=== PATIENT | female | born 1965 | race Caucasian/White ===

== ENCOUNTER 2016-06-18 11:07 | Emergency (ER) | payer MEDICAID, OTHER ==
[~2016-06-18 11:07] MED LIST: Sodium Chloride 0.9% 2,000 ML IV ONE
[2016-06-18] MEDS: Sodium Chloride 0.9%, Bacteriostatic 10 ML MDV IV ONE (11:27)
[2016-06-18] MEDS ORDERED: Promethazine 25 MG/ML SDV IM ONE ×2 (11:32→14:22)
[2016-06-18] MEDS ORDERED: Sodium Chloride 0.9% 10 ML Syringe FLUSH PRN (11:32)
[2016-06-18 11:56] LABS: CHLORIDE,CL 104 mmol/L (101-111); SODIUM,NA 137 mmol/L (135-145)
--- NOTE | 2016-06-18 12:47 | EDM.PDOC ---
ED HPI GI/ABDOMINAL - General Chief Complaint: Gastrointestinal Problem Stated Complaint: SICK, DIABETIC Time Seen by Provider: 06/18/16 11:25 Source of Information: Reports: Patient History Limitations: Reports: No limitations - History of Present Illness INITIAL COMMENTS - FREE TEXT/NARRATIVE: Pt states that she has been having n/v for the past 4 days. States that she also has a cough. oxygen sats 77% upon arrival. Placed on NRB. sats increased to 98% Symptom Onset Date: 06/15/16 Timing/Duration: Reports: Getting worse Associated Symptoms (-Female): Reports: nausea/vomiting - Related Data Allergies/ADRs: Allergies Allergy/AdvReac Type Severity Reaction Status Date / Time Cephalosporins Allergy Intermediate Rash Verified 06/18/16 12:40 Influenza Virus Vaccines Allergy Intermediate Nausea and Verified 06/18/16 12:40 Vomiting Iodinated Contrast Media - Allergy Intermediate Pain Verified 06/18/16 12:40 Oral and Penicillins Allergy Intermediate Pain Verified 06/18/16 12:40 Quinolones Allergy Intermediate Rash Verified 06/18/16 12:40 Home Meds: Home Meds Acetaminophen/oxyCODONE [Percocet 325-5 MG] 1 tab PO Q4HR PRN 06/18/16 [History] Albuterol [Proair HFA] 2 puff INH ASDIRECTED 06/18/16 [History] Atenolol [Atenolol] 25 mg PO DAILY 06/18/16 [History] Calcitriol [Rocaltrol] 2 cap PO DAILY 06/18/16 [History] Citalopram [Citalopram HBr] 40 mg PO DAILY 06/18/16 [History] DULoxetine [Cymbalta] 60 mg PO BID 06/18/16 [History] Estradiol [Estradiol] 1 mg PO DAILY 06/18/16 [History] Lisinopril 40 mg PO DAILY 06/18/16 [History] Pregabalin [Lyrica] 100 mg PO TID 06/18/16 [History] Promethazine HCl 50 mg PO TID 06/18/16 [History] Ranitidine [Zantac] 150 mg PO DAILY 06/18/16 [History] ED ROS GENERAL - Review of Systems Review Of Systems: ROS reveals no pertinent complaints other than HPI. Respiratory: Reports: cough, sputum GI/Abdominal: Reports: Abdominal pain, Nausea, Vomiting ED EXAM, GI/ABD - Physical Exam Exam: See Below Exam Limited By: No limitations General Appearance: alert, WD/WN, no apparent distress Eyes: bilateral: normal appearance, EOMI Ears: normal external exam, normal canal, hearing grossly normal, normal TMs Nose: normal inspection, normal mucosa, no blood Throat/Mouth: Normal inspection, Normal lips, Normal teeth, Normal gums, Normal oropharynx, Normal voice, No airway compromise Head: atraumatic, normocephalic Neck: normal inspection, supple, non-tender, full range of motion Respiratory/Chest: no respiratory distress, lungs clear, normal breath sounds, no accessory muscle use, chest non-tender Cardiovascular: normal peripheral pulses, regular rate, rhythm, no edema, no gallop, no JVD, no murmur, no rub GI/Abdominal: normal bowel sounds, soft, non tender, no organomegaly, no distention, no abnormal bruit, no mass, other (insulin pump present) Neurological: alert, oriented, CN II-XII intact, normal cognition, normal gait, normal reflexes, no motor/sensory deficits Skin Exam: Warm, Dry, Intact, Normal color, No rash Course - Vital Signs Last Recorded V/S: Last Vital Signs Temp 100.2 F 06/18/16 14:38 Pulse 100 06/18/16 14:21 Resp 20 06/18/16 11:35 BP 130/70 06/18/16 11:35 Pulse Ox 93 L 06/18/16 14:21 - Orders/Labs/Meds Orders: Active Orders 24 hr Category Date Time Status EKG Documentation Completion [RC] STAT Care 06/18/16 12:57 Active RT Aerosol Therapy [RC] ASDIRECTED Care 06/18/16 12:57 Active RT Aerosol Therapy [RC] ASDIRECTED Care 06/18/16 14:21 Active Chest 2V [CR] Urgent Exams 06/18/16 11:41 Taken CULTURE BLOOD [BC] Stat Lab 06/18/16 11:25 Received CULTURE BLOOD [BC] Stat Lab 06/18/16 12:45 Results CULTURE STREP A CONFIRMATION [RM] Stat Lab 06/18/16 11:39 Results STREP SCRN A RAPID W CULT CONF [RM] Stat Lab 06/18/16 11:39 Results UA W/MICROSCOPIC [URIN] Stat Lab 06/18/16 11:41 Uncollected Azithromycin [Zithromax] 1,000 mg Med 06/18/16 14:15 Active Sodium Chloride 0.9% [Normal Saline] 250 ml IV ONETIME Dextrose 5%-0.9% NaCl [Dextrose 5%-Normal Saline] 1,000 Med 06/18/16 13:42 Active ml IV ONETIME Sodium Chloride 0.9% [Saline Flush] Med 06/18/16 11:32 Active 10 ml FLUSH ASDIRECTED PRN Blood Culture x2 Reflex Set [OM.PC] Stat Ot 06/18/16 12:33 Ordered Saline Lock Insert [OM.PC] Stat Ot 06/18/16 11:31 Ordered Medication Orders Dextrose/Sodium Chloride (Dextrose 5%-Normal Saline) 1,000 mls @ 100 mls/hr IV ONETIME ONE Stop: 06/18/16 23:41 Last Admin: 06/18/16 13:42 Dose: 100 mls/hr Azithromycin 1,000 mg/ Sodium (Chloride) 250 mls @ 250 mls/hr IV ONETIME ONE Stop: 06/18/16 15:14 Last Admin: 06/18/16 14:33 Dose: 250 mls/hr Sodium Chloride (Saline Flush) 10 ml FLUSH ASDIRECTED PRN PRN Reason: Keep Vein Open Last Admin: 06/18/16 11:25 Dose: 10 ml Labs: Laboratory Tests 06/18/16 06/18/16 06/18/16 Range/Units 11:25 11:25 11:25 WBC 10.4 H (5.0-10.0) 10^3/uL RBC 3.37 L (4.2-5.4) 10^6/uL Hgb 8.6 L (12.0-16.0) g/dL Hct 28.3 L (37.0-47.0) % MCV 84.0 (80-100) fL MCH 25.5 L (27.0-34.0) pg MCHC 30.4 L (33.0-35.0) g/dL Plt Count 172 (150-450) 10^3/uL Neut % (Auto) 84.0 H (42.2-75.2) % Lymph % (Auto) 9.5 L (20.5-50.1) % [place] % (Auto) 5.4 (2-8) % Eos % (Auto) 1.0 (1.0-3.0) % Baso % (Auto) 0.1 (0.0-1.0) % PT 10.8 (9.0-12.0) SEC INR 1.0 (0.9-1.2) ABG pH (7.35-7.45) ABG pCO2 (35-45) mmHg ABG pO2 (70-100) mmHg ABG HCO3 (22-26) mmol/L ABG O2 Saturation (95-100) % ABG Base Excess ((-2)-(+3)) mmol/L [place] Test O2 Delivery Device Oxygen Flow Rate Sodium 137 (135-145) mmol/L Potassium 4.8 (3.6-5.0) mmol/L Chloride 104 (101-111) mmol/L Carbon Dioxide 23.0 (21.0-31.0) mmol/L Anion Gap 14.8 BUN 19 H (7-18) mg/dL Creatinine 1.4 H (0.6-1.3) mg/dL Est Cr Clr Drug Dosing TNP Estimated GFR (MDRD) 40 BUN/Creatinine Ratio 13.57 Glucose 115 H (74-105) mg/dL POC Glucose (70-105) mg/dl Lactic Acid (0.5-2.2) mmol/L Calcium 8.7 (8.4-10.2) mg/dl Total Bilirubin 0.5 (0.2-1.0) mg/dL AST 23 (10-42) IU/L ALT 11 (10-60) IU/L Alkaline Phosphatase 169 H (42-121) IU/L Creatine Kinase (26-174) IU/L Creatine Kinase Index (0-2.4) % CK-MB (CK-2) (0.4-4.7) ng/mL Troponin I (0.00-0.02) ng/ml Total Protein 6.4 L (6.7-8.2) g/dl Albumin 2.7 L (3.2-5.5) g/dl Globulin 3.7 Albumin/Globulin Ratio 0.73 Amylase 20 L (28-100) U/L Lipase 8 L (22-51) U/L 06/18/16 06/18/16 06/18/16 Range/Units 11:25 11:25 11:25 WBC (5.0-10.0) 10^3/uL RBC (4.2-5.4) 10^6/uL Hgb (12.0-16.0) g/dL Hct (37.0-47.0) % MCV (80-100) fL MCH (27.0-34.0) pg MCHC (33.0-35.0) g/dL Plt Count (150-450) 10^3/uL Neut % (Auto) (42.2-75.2) % Lymph % (Auto) (20.5-50.1) % [place] % (Auto) (2-8) % Eos % (Auto) (1.0-3.0) % Baso % (Auto) (0.0-1.0) % PT (9.0-12.0) SEC INR (0.9-1.2) ABG pH (7.35-7.45) ABG pCO2 (35-45) mmHg ABG pO2 (70-100) mmHg ABG HCO3 (22-26) mmol/L ABG O2 Saturation (95-100) % ABG Base Excess ((-2)-(+3)) mmol/L [place] Test O2 Delivery Device Oxygen Flow Rate Sodium (135-145) mmol/L Potassium (3.6-5.0) mmol/L Chloride (101-111) mmol/L Carbon Dioxide (21.0-31.0) mmol/L Anion Gap BUN (7-18) mg/dL Creatinine (0.6-1.3) mg/dL Est Cr Clr Drug Dosing Estimated GFR (MDRD) BUN/Creatinine Ratio Glucose (74-105) mg/dL POC Glucose (70-105) mg/dl Lactic Acid 1.8 (0.5-2.2) mmol/L Calcium (8.4-10.2) mg/dl Total Bilirubin (0.2-1.0) mg/dL AST (10-42) IU/L ALT (10-60) IU/L Alkaline Phosphatase (42-121) IU/L Creatine Kinase 47 (26-174) IU/L Creatine Kinase Index 2.1 (0-2.4) % CK-MB (CK-2) 1.00 (0.4-4.7) ng/mL Troponin I < 0.02 (0.00-0.02) ng/ml Total Protein (6.7-8.2) g/dl Albumin (3.2-5.5) g/dl Globulin Albumin/Globulin Ratio Amylase (28-100) U/L Lipase (22-51) U/L 06/18/16 06/18/16 06/18/16 Range/Units 12:44 13:37 13:55 WBC (5.0-10.0) 10^3/uL RBC (4.2-5.4) 10^6/uL Hgb (12.0-16.0) g/dL Hct (37.0-47.0) % MCV (80-100) fL MCH (27.0-34.0) pg MCHC (33.0-35.0) g/dL Plt Count (150-450) 10^3/uL Neut % (Auto) (42.2-75.2) % Lymph % (Auto) (20.5-50.1) % [place] % (Auto) (2-8) % Eos % (Auto) (1.0-3.0) % Baso % (Auto) (0.0-1.0) % PT (9.0-12.0) SEC INR (0.9-1.2) ABG pH 7.37 (7.35-7.45) ABG pCO2 35 (35-45) mmHg ABG pO2 108 H (70-100) mmHg ABG HCO3 19.7 L (22-26) mmol/L ABG O2 Saturation 99 (95-100) % ABG Base Excess -5 L ((-2)-(+3)) mmol/L [place] Test Positive O2 Delivery Device Non rebr mask Oxygen Flow Rate 0 Sodium (135-145) mmol/L Potassium (3.6-5.0) mmol/L Chloride (101-111) mmol/L Carbon Dioxide (21.0-31.0) mmol/L Anion Gap BUN (7-18) mg/dL Creatinine (0.6-1.3) mg/dL Est Cr Clr Drug Dosing Estimated GFR (MDRD) BUN/Creatinine Ratio Glucose (74-105) mg/dL POC Glucose 86 71 (70-105) mg/dl Lactic Acid (0.5-2.2) mmol/L Calcium (8.4-10.2) mg/dl Total Bilirubin (0.2-1.0) mg/dL AST (10-42) IU/L ALT (10-60) IU/L Alkaline Phosphatase (42-121) IU/L Creatine Kinase (26-174) IU/L Creatine Kinase Index (0-2.4) % CK-MB (CK-2) (0.4-4.7) ng/mL Troponin I (0.00-0.02) ng/ml Total Protein (6.7-8.2) g/dl Albumin (3.2-5.5) g/dl Globulin Albumin/Globulin Ratio Amylase (28-100) U/L Lipase (22-51) U/L Meds: Medications Generic Name Dose Route Start Last Admin Trade Name Freq PRN Reason Stop Dose Admin Dextrose/Sodium Chloride 1,000 mls @ 100 mls/hr 06/18/16 13:42 06/18/16 13:42 Dextrose 5%-Normal Saline IV 06/18/16 23:41 100 mls/hr ONETIME ONE Administration Azithromycin 1,000 mg/ Sodium 250 mls @ 250 mls/hr 06/18/16 14:15 06/18/16 14 :33 Chloride IV 06/18/16 15:14 250 mls/hr ONETIME ONE Administration Sodium Chloride 10 ml 06/18/16 11:32 06/18/16 11:25 Saline Flush FLUSH 10 ml ASDIRECTED PRN Administration Keep Vein Open Discontinued Medications Generic Name Dose Route Start Last Admin Trade Name Albertoq PRN Reason Stop Dose Admin Albuterol/Ipratropium 3 ml 06/18/16 12:57 06/18/16 13:05 Duoneb 3.0-0.5 Mg/3 Ml NEB 06/18/16 12:58 3 ml ONETIME ONE Administration Piperacillin Sod/Tazobactam 50 mls @ 100 mls/hr 06/18/16 14:15 06/18/16 14:48 Sod 4.5 gm/ Sodium Chloride IV 06/18/16 14:44 Not Given ONETIME ONE Promethazine HCl 25 mg 06/18/16 11:32 06/18/16 12:08 Phenergan IM 06/18/16 11:33 25 mg ONETIME ONE Administration Promethazine HCl 25 mg 06/18/16 14:22 06/18/16 14:27 Phenergan IM 06/18/16 14:23 25 mg ONETIME ONE Administration Racepinephrine 0.5 ml 06/18/16 14:21 06/18/16 14:25 S-2 2.25% NEB 06/18/16 14:22 0.5 ml ONETIME ONE Administration Sodium Chloride 2,000 ml 06/18/16 11:33 06/18/16 11:27 Sodium Chloride 0.9% IV 06/18/16 11:34 2,000 ml ONETIME ONE Administration - Radiology Interpretation Free Text/Narrative:: Possible pneumonia on CXR - Re-Assessments/Exams Free Text/Narrative Re-Assessment/Exam: 06/18/16 15:[address] Isreal Yung accepting Departure - Departure Time of Disposition: 15:01 Disposition: DC/Tfer to [facility] 02 Condition: fair Clinical Impression: Pneumonia Qualifiers: Pneumonia type: due to unspecified organism Laterality: bilateral Lung location : lower lobe of lung Qualified Code(s): J18.9 - Pneumonia, unspecified organism Instructions: Atelectasis, Adult, Pneumonia, Child Forms: ED Department Discharge - My Orders Last 24 Hours: My Active Orders 06/18/16 11:25 CULTURE BLOOD [BC] Stat 06/18/16 11:31 Saline Lock Insert [OM.PC] Stat 06/18/16 11:32 Sodium Chloride 0.9% [Saline Flush] 10 ml FLUSH ASDIRECTED PRN 06/18/16 11:39 CULTURE STREP A CONFIRMATION [RM] Stat STREP SCRN A RAPID W CULT CONF [RM] Stat 06/18/16 11:41 Chest 2V [CR] Urgent UA W/MICROSCOPIC [URIN] Stat 06/18/16 12:33 Blood Culture x2 Reflex Set [OM.PC] Stat 06/18/16 12:45 CULTURE BLOOD [BC] Stat 06/18/16 12:57 EKG Documentation Completion [RC] STAT RT Aerosol Therapy [RC] ASDIRECTED 06/18/16 13:42 Dextrose 5%-0.9% NaCl [Dextrose 5%-Normal Saline] 1,000 ml IV ONETIME 06/18/16 14:15 Azithromycin [Zithromax] 1,000 mg Sodium Chloride 0.9% [Normal Saline] 250 ml IV ONETIME 06/18/16 14:21 RT Aerosol Therapy [RC] ASDIRECTED - Assessment/Plan Last 24 Hours: My Active Orders 06/18/16 11:25 CULTURE BLOOD [BC] Stat 06/18/16 11:31 Saline Lock Insert [OM.PC] Stat 06/18/16 11:32 Sodium Chloride 0.9% [Saline Flush] 10 ml FLUSH ASDIRECTED PRN 06/18/16 11:39 CULTURE STREP A CONFIRMATION [RM] Stat STREP SCRN A RAPID W CULT CONF [RM] Stat 06/18/16 11:41 Chest 2V [CR] Urgent UA W/MICROSCOPIC [URIN] Stat 06/18/16 12:33 Blood Culture x2 Reflex Set [OM.PC] Stat 06/18/16 12:45 CULTURE BLOOD [BC] Stat 06/18/16 12:57 EKG Documentation Completion [RC] STAT RT Aerosol Therapy [RC] ASDIRECTED 06/18/16 13:42 Dextrose 5%-0.9% NaCl [Dextrose 5%-Normal Saline] 1,000 ml IV ONETIME 06/18/16 14:15 Azithromycin [Zithromax] 1,000 mg Sodium Chloride 0.9% [Normal Saline] 250 ml IV ONETIME 06/18/16 14:21 RT Aerosol Therapy [RC] ASDIRECTED
[2016-06-18] MEDS ORDERED: Albuterol/Ipratropium 3.0-0.5 MG/3 ML Neb Soln NEB ONE (12:57)
[2016-06-18 13:01] VITALS: BP 130/70
[2016-06-18] MEDS ORDERED: Dextrose 5%-0.9% NaCl 1,000 ML IV ONE (13:42)
[2016-06-18 14:00] LABS: BASE EXCESS ARTERIAL -5 mmol/L ((-2)-(+3)); BICARBONATE,ARTERIAL 19.7 mmol/L (22-26); O2 DELIVERY DEVICE NON REBR MASK; O2 FLOW RATE 0; O2 SATURATION ARTERIAL 99 % (95-100); PCO2 ARTERIAL 35 mmHg (35-45); PO2 ARTERIAL 108 mmHg (70-100)
[2016-06-18 14:07] LABS: ALLEN TEST POSITIVE
[2016-06-18] MEDS ORDERED: Piperacillin/Tazobactam 4.5 GM in Sodium Chloride 0.9% 50 ML IV ONE (14:15)
[2016-06-18] MEDS ORDERED: Racepinephrine 2.25% 0.5 ML Neb Soln NEB ONE (14:21)
[2016-06-23] MEDS: Sodium Chloride 0.9%, Bacteriostatic 10 ML MDV IV ONE (14:58)
--- NOTE | 2016-07-11 08:57 | EKG ---
06/18/2016- MINDY PAUL - This is a 12-lead standard EKG showing sinus tachycardia with a rate of 92 beats per minute, normal ME interval, premature ventricular beats are also noted. No significant ST-T changes. [facility] /[id number] MTDD
== END 2016-06-18 15:13 ==
LOC: DL.ED 11:07
DX: J18.9 Pneumonia, unspecified organism (principal); Z88.8 Allergy status to other drugs, medicaments and biological substances; Z88.1 Allergy status to other antibiotic agents
CPT/HCPCS: 36415; 36600; 71020; 80053; 82150; 82550; 82553; 82803; 82962; 83605; 83690; 84484; 85025; 85610; 87040; 87081; 87430; 87804; 93005; 94640; 96361; 96365; 96372; 99285; J0456; J2550; J7042; J7050; J7030